=== PATIENT | male | born 1935 | race Caucasian/White ===

== ENCOUNTER → 2016-10-06 | Outpatient (CLI) | payer OTHER ==
[2016-10-06 13:25] LABS: ALT/SGPT 19 U/L (12-78); AST/SGOT 15 U/L (15-37); BLOOD UREA NITROGEN 16 mg/dl (7-18); BUN/CREATININE RATIO 19.8 (10-20); CALCIUM 8.9 mg/dl (8.5-10.1); CARBON DIOXIDE 30 mmol/L (21-32); CHLORIDE 106 mmol/L (98-107); CHOLESTEROL 177 mg/dl (0-200); GLUCOSE 96 mg/dl (70-99); POTASSIUM 3.7 mmol/L (3.5-5.1); SODIUM 143 mmol/L (136-145); TRIGLYCERIDES 178 mg/dl (0-150); VERY LOW DENSITY LIPOPROT CALC 36 mg/dl
[2016-10-06 13:26] LABS: CHOLESTEROL/HDL RATIO 5.5; HDL CHOLESTEROL 32 mg/dl; LDL CHOLESTEROL CALCULATED 109 mg/dl
== END | disposition home or self-care (01) ==
LOC: C.LABMFLN 08:58
PROVIDERS: ATTEND Family Medicine
DX: I10 Essential (primary) hypertension (principal); E78.5 Hyperlipidemia, unspecified

== ENCOUNTER → 2016-10-31 | Outpatient (CLI) | payer OTHER | END | disposition home or self-care (01) | LOC: C.PATHSPEC 17:56 | PROVIDERS: ATTEND Family Medicine | DX: L98.9 Disorder of the skin and subcutaneous tissue, unspecified (principal) ==

== ENCOUNTER → 2017-04-03 | Outpatient (CLI) | payer OTHER ==
[2017-04-03 13:57] LABS: ALT/SGPT 21 U/L (12-78); AST/SGOT 16 U/L (15-37); BLOOD UREA NITROGEN 18 mg/dl (7-18); BUN/CREATININE RATIO 20.2 (10-20); CALCIUM 9.1 mg/dl (8.5-10.1); CARBON DIOXIDE 29 mmol/L (21-32); CHLORIDE 106 mmol/L (98-107); CHOLESTEROL 182 mg/dl (0-200); GLUCOSE 98 mg/dl (70-99); SODIUM 140 mmol/L (136-145); TRIGLYCERIDES 178 mg/dl (0-150); VERY LOW DENSITY LIPOPROT CALC 36 mg/dl
[2017-04-03 14:01] LABS: CHOLESTEROL/HDL RATIO 6.1; HDL CHOLESTEROL 30 mg/dl; LDL CHOLESTEROL CALCULATED 116 mg/dl
== END | disposition home or self-care (01) ==
LOC: C.LABMFLN 08:40
PROVIDERS: ATTEND Family Medicine
DX: I10 Essential (primary) hypertension (principal); E78.5 Hyperlipidemia, unspecified; R05 Cough

== ENCOUNTER → 2017-09-25 | Outpatient (CLI) | payer OTHER ==
[2017-09-25 13:32] LABS: ALBUMIN 3.8 gm/dl (3.4-5.0); ALT/SGPT 25 U/L (12-78); BLOOD UREA NITROGEN 18 mg/dl (7-18); CALCIUM 9.1 mg/dl (8.5-10.1); CARBON DIOXIDE 30 mmol/L (21-32); CHOLESTEROL 187 mg/dl (0-200); CREATININE 0.92 mg/dl (0.60-1.40); GLUCOSE 106 mg/dl (70-99); POTASSIUM 4.1 mmol/L (3.5-5.1); SODIUM 140 mmol/L (136-145)
[2017-09-25 13:36] LABS: ALKALINE PHOSPHATASE 63 U/L (45-117); AST/SGOT 16 U/L (15-37); LDL CHOLESTEROL CALCULATED 118 mg/dl; TOTAL PROTEIN 6.4 gm/dl (6.4-8.2)
== END | disposition home or self-care (01) ==
LOC: C.LABMFLN 09:10
PROVIDERS: ATTEND Family Medicine
DX: I10 Essential (primary) hypertension (principal); E78.5 Hyperlipidemia, unspecified

== ENCOUNTER 2022-02-15 07:50 | Inpatient (IN) ==
--- NOTE | 2022-01-30 09:51 | PAT Medication Instructions ---
Medication Instructions Date of Service January 30, 2022 Home Medications Medication Instructions Recorded amlodipine 10 mg-benazepril 20 mg 1 cap PO QAM #90 caps 12/22/21 capsule hydrochlorothiazide 25 mg tablet 25 mg PO QAM #90 tabs 12/22/21 omeprazole 40 mg capsule,delayed 40 mg PO QAM #90 caps 12/22/21 release triamcinolone acetonide 0.1 % topical cream 1 applic topical UD PRN amlodipine 10 mg-benazepril 20 mg capsule 1 cap PO QAM hydrochlorothiazide 25 mg tablet 25 mg PO QAM omeprazole 40 mg capsule,delayed release 40 mg PO QAM aspirin 81 mg chewable tablet 81 mg PO QAM diclofenac sodium 75 mg tablet,delayed release 75 mg PO QAM metoprolol succinate 25 mg tablet,extended release 24 hr 25 mg PO QAM ASK your surgeon for instructions diclofenac sodium 75 mg tablet,delayed release 75 mg PO QAM STOP taking 24 hours before surgery triamcinolone acetonide 0.1 % topical cream 1 applic topical UD PRN DO NOT take the morning of surgery hydrochlorothiazide 25 mg tablet 25 mg PO QAM amlodipine 10 mg-benazepril 20 mg capsule 1 cap PO QAM Take morning of surgery With a small sip of water, OTHERWISE NOTHING TO EAT OR DRINK AFTER MIDNIGHT: omeprazole 40 mg capsule,delayed release 40 mg PO QAM aspirin 81 mg chewable tablet 81 mg PO QAM (unless directed otherwise by surgeon) metoprolol succinate 25 mg tablet,extended release 24 hr 25 mg PO QAM Other Notes If you have any questions please call us at [phone] or [phone] or [phone] or [phone]
--- NOTE | 2022-02-02 15:15 | Anesthesiology Consultation ---
Date of Service February 02, 2022 Assessment & Plan (1) Encounter for pre-operative examination: - Patient acceptable risk pending surgeon-ordered PCP preop evaluation (scheduled 02/09; [facility]). - COVID screening: Per assessment on 02/02: No known COVID-19 positive contacts or current COVID-19 related symptoms. Travel screen negative. Patient vaccinated. Surgeon arranging preop COVID testing. Awaiting results. - Patient requests deeper sedation if possible/"does not want to hear" anything during surgery. Chart Review Chart Review: Patient seen in Pre Admission Testing Teaching & Discussion Pre-Anesthesia Teaching/Discussion Notes: Instructed NPO after midnight before surgery,except medications with 15 cc of water. Medication instructions provided according to the PAT guidelines. History Surgery Operation Date: 02/15/22 14:55 Proposed Procedures p Right Total Knee Arthroplasty - Enrike Gonzales MD Height/Weight Height: 5 ft 10 in Weight: 86.4 kg Allergies Allergy/AdvReac Type Severity Reaction Status Date / Time guaifenesin Allergy Unknown Unknown Verified 02/01/22 13:49 hydrocodone Allergy Unknown Unknown Verified 02/01/22 13:49 Medications Home Medications Medication Instructions Recorded Confirmed Last Taken triamcinolone acetonide 0.1 % 1 applic topical UD PRN Skin 08/10/20 01/27/22 08/24/20 topical cream Irritation amlodipine 10 mg-benazepril 20 mg 1 cap PO QAM #90 caps 12/22/21 01/27/22 Unknown capsule hydrochlorothiazide 25 mg tablet 25 mg PO QAM #90 tabs 12/22/21 01/27/22 Unknown omeprazole 40 mg capsule,delayed 40 mg PO QAM #90 caps 12/22/21 01/27/22 Unknown release aspirin 81 mg chewable tablet 81 mg PO QAM 01/27/22 01/27/22 Unknown diclofenac sodium 75 mg 75 mg PO QAM 01/27/22 01/27/22 Unknown tablet,delayed release metoprolol succinate 25 mg 25 mg PO QAM 01/27/22 01/27/22 Unknown tablet,extended release 24 hr Past Medical History Medical History (Updated 02/02/22 @ 16:01 by Natalia Gerard) Benign essential hypertension Generalized osteoarthritis of multiple sites GERD without esophagitis HTN (hypertension) Hyperlipidemia Per records, pt denies Exercise / Class Metabolic Activity II 4-5 Yardwork/Stairs/Walk up hill (one FS (no CP, + SOB)) Past Family History Family History Mother Family history of cancer Other No family history of adverse response to anesthesia Past Surgical History Surgical History H/O shoulder surgery Right RCR History of cataract surgery R/L History of colonoscopy Past Anesthesia History No Hx of Anesthesia Complications and No Family Hx of Anesthesia Complications History of PONV No Hx of PONV and No Hx of Motion Sickness Social History Smoking Status: Never smoker Do You Dip or Chew Tobacco: No Hx Alcohol Use: Yes Alcohol type: beer alcohol intake frequency: a few times a week Hx Substance Use: No substance use type: does not use Review of Systems Patient denies chest pain, shortness of breath, fever, chills, cough, wheezing, palpitations. Physical Exam Vital Signs VITALS BP 130/65 P 84 TEMP 98.2 SP02 96%RA RESP 16 PHYSICAL Full cervical extension range of motion. Full TMJ range of motion. TMD 3 finger breaths Mallampati Score 2 Dentition: full dentures upper/lower Lungs: clear throughout to auscultation Cardiac: regular rate and rhythm, no murmurs noted Spine: normal Carotid arteries: negative bruit Extremities: no edema Lab Results Anesthesia Preop Results Results Anesthesia Widget: WBC 6.71 K/ul (4.8-10.8) 02/02/22 Hgb 14.1 g/dl (14.0-18.0) 02/02/22 Hct 41.1 % (40.1-51.0) 02/02/22 Plt 236 K/uL (130-400) 02/02/22 Na 137 mmol/L (136-145) 02/02/22 K 4.1 mmol/L (3.5-5.1) 02/02/22 Cl 103 mmol/L (98-107) 02/02/22 CO2 29 mmol/L (21-32) 02/02/22 BUN 20 mg/dl (6-23) 02/02/22 Creat 0.91 mg/dl (0.6-1.4) 02/02/22 Glucose Level 122 mg/dl (70-99(Fasting)) H 02/02/22 PT 10.9 Seconds (9.0-12.0) 02/02/22 PTT 29.0 Seconds (21.0-31.0) 02/02/22 INR 1.0 (0.9-1.1) 02/02/22 HA1c 5.4 % (4.5-5.6) 02/02/22 Urine Color Yellow 02/02/22 Urine Appearance Clear (Clear) 02/02/22 Urine pH 6.5 (4.5-7.5) 02/02/22 Urine Specific [place] 1.016 (1.000-1.030) 02/02/22 Urine Protein Negative (Negative) 02/02/22 Urine Glucose (UA) Negative (Negative) 02/02/22 Urine Ketones Negative (Negative) 02/02/22 Urine Blood Negative (Negative) 02/02/22 Urine Nitrite Negative (Negative) 02/02/22 Urine Bilirubin Negative (Negative) 02/02/22 Urine Urobilinogen Negative (Negative) 02/02/22 Urine Leukocyte Esterase Negative (Negative) 02/02/22 Blood Type O Positive 02/02/22 Antibody Screen NEGATIVE 02/02/22 Testing Electrocardiogram Date: 02/02/22 NSR at 83bpm. RBBB. Chest X-Ray Date: 02/02/22 FINDINGS: Small linear densities at the left lung base favor subsegmental atelectasis are scarring. Otherwise, the lungs are clear. The heart is normal in size. No pleural effusions. No pneumothorax. Mild to moderate degenerative changes within the thoracic spine. IMPRESSION: No acute process.
--- NOTE | 2022-02-14 21:34 | History & Physical Report ---
Date of Service February 14, 2022 Assessment & Plan (1) Primary osteoarthritis of right knee: Plan: Treatment options discussed with patient. He has failed conservative measures and would like to proceed with surgery. Risks, benefits and alternatives to surgery including but not limited to infection, DVT, pain, stiffness, need for revision surgery, damage to blood vessels, damage to nerves, PE, , were discussed with the patient and they wish to proceed. Plan on right total knee arthroplasty. Surgery scheduled for [facility] with Dr. Gonzales on 02/14/22. Will plan on aspirin 81mg BID x 1 mo post op for DVT prophylaxis. Will plan on inpatient rehab. All questions answered. F/u post op. History of Present Illness Chief Complaint: Right knee pain Primary Care Provider: Colton Ambriz MD 86yo male with PMHx significant for HTN presents with ongoing right knee pain. He has failed conservative management. Pain is interfering with his daily activity. He would like to proceed with knee replacement. Patient denies headaches, sweats, fevers, chills, double vision, blurred vision, cough, sore throat, dysphagia, chest pain, sob, wheezing, n/v/d/c, numbness, tingling, fatigue, urinary symptoms, mood disorders. ROS positive for right knee pain and stiffness. Allergies Allergy/AdvReac Type Severity Reaction Status Date / Time guaifenesin Allergy Unknown Unknown Verified 02/09/22 09:01 hydrocodone Allergy Unknown Unknown Verified 02/09/22 09:01 Home Medications Medication Instructions Recorded Confirmed Type triamcinolone acetonide 0.1 % 1 applic topical UD PRN Skin 08/10/20 02/09/22 History topical cream Irritation amlodipine 10 mg-benazepril 20 mg 1 cap PO QAM #90 caps 12/22/21 02/09/22 Rx capsule hydrochlorothiazide 25 mg tablet 25 mg PO QAM #90 tabs 12/22/21 02/09/22 Rx omeprazole 40 mg capsule,delayed 40 mg PO QAM #90 caps 12/22/21 02/09/22 Rx release aspirin 81 mg chewable tablet 81 mg PO QAM 01/27/22 02/09/22 History diclofenac sodium 75 mg 75 mg PO QAM 01/27/22 02/09/22 History tablet,delayed release metoprolol succinate 25 mg 25 mg PO QAM 01/27/22 02/09/22 History tablet,extended release 24 hr Past Med/Surg History Medical History Benign essential hypertension Generalized osteoarthritis of multiple sites GERD without esophagitis HTN (hypertension) Hyperlipidemia Surgical History H/O shoulder surgery History of cataract surgery History of colonoscopy Family History Mother Family history of cancer Other No family history of adverse response to anesthesia Social History Smoking Status: Never smoker Second Hand Exposure: No; Hx Alcohol Use: Yes Alcohol type: beer Alcohol Intake Frequency: 2-3 x/Week Hx Substance Use: No Preferred Language: Croatian Communication Ability: Effective Hearing Ability: Normal Block Out Machine Operator Required: No Beliefs That Will Affect Care: None marital status: / Current Living Situation: Alone How many Children do You have: 2 Feels Safe at Home: Yes Childhood Exposure to Second-Hand Smoke: Yes Seatbelt Use: always Sunscreen Use: Yes Assistive Devices: Denture - Upper, Denture - Lower and Glasses Review of Systems All systems reviewed & are unremarkable except as noted in HPI & below Physical Exam Constitutional: well developed and well nourished; no acute distress Eyes: PERRL, conjunctivae normal, anicteric sclerae ENMT: external ear and nose normal, oropharynx normal Neck: trachea midline, no thyromegaly Respiratory: normal respiratory effort, lungs clear to auscultation Cardiovascular: RRR, no murmur, no edema Musculoskeletal: Right knee: Varus alignment. Tenderness medial joint line with mild effusion. ROM 15-110 degres. Stable to valgus and varus stress. Skin: no rashes, warm and dry Neurologic: patellar DTR's 2+ bilat, sensation intact Psychiatric: A+Ox3, euthymic affect Results & Data ([facility]) Diagnostic Findings Right knee radiographs demonstrate endstage osteoarthritis right knee, varus alignment with bone on bone medial compartment with subluxation.
[~2022-02-15 07:50] MED LIST: ACETAMINOPHEN 500 MG TAB PO SCH; BUPIVACAINE 0.5 % 5 MG/1 ML PF 10ML VIAL ONE; CeleBREX 200 MG CAP PO SCH; FAMOTIDINE 20 MG TAB PO SCH; GABAPENTIN 300 MG CAP PO SCH; LR 500ML BOLUS, THEN 15ML/HR IV SCH; METOCLOPRAMIDE HCL 10 MG TABLET PO SCH; ROPIVACAINE 0.5% 5 MG/ML 30 ML VIAL ONE; ROPIVACAINE 0.5% HCL/PF 150 MG, BUPIVACAINE 0.75% MPF 20 ML, EPINEPHrine 30MG/30ML (OR ... INSTIL SCH; TRANEXAMIC ACID 1,000 MG **IV Intra-op IV SCH; TRANEXAMIC ACID 1,000 MG **IV Pre-op IV SCH; ceFAZolin 2000MG 2,000 MG/15 ML SYR IV SCH; dexAMETHasone 4 MG TAB PO SCH
[2022-02-15] MEDS ORDERED: MIDAZOLAM HCL 1 MG/ML 2ML VIAL ONE (08:26)
[2022-02-15] MEDS ORDERED: PROPOFOL IV EMULSION 10 MG/ML 20 ML VIAL IV ONE (08:26)
[2022-02-15] MEDS ORDERED: fentaNYL citrate 100 MCG/2 ML VIAL ONE (08:26)
--- NOTE | 2022-02-15 09:40 | History & Physical Bridge Note ---
Date of Service February 15, 2022 History & Physical Bridge Note I have examined the patient, reviewed the History & Physical and in the interval since the performance of the History & Physical I have noted the following changes of clinical significance: no changes noted
[2022-02-15] MEDS ORDERED: ORTHO JOINT ANESTHETIC ONE (09:44)
[2022-02-15] MEDS ORDERED: HYDROmorphone INJ 2 MG/ML SYR/VIAL IV PRN (10:18)
[2022-02-15] MEDS ORDERED: fentaNYL citrate 100 MCG/2 ML VIAL IV PRN (10:18)
[2022-02-15] MEDS ORDERED: ePHEDrine sulfate 50 MG/ML AMP IV PRN (10:18)
[2022-02-15] MEDS ORDERED: ATROPINE SULFATE 0.1 MG/ML 10ML SYR IV PRN (10:18)
[2022-02-15] MEDS ORDERED: PHENYLEPHRINE HCL 10 MG/ML VIAL ONE (11:01)
[2022-02-15] MEDS ORDERED: SODIUM CHLORIDE 0.9% INJ 10 ML VIAL ONE (11:01)
--- NOTE | 2022-02-15 12:25 | Post Operative Brief Note ---
Immediate Post Op Note v1 Date of Surgery February 15, 2022 Pre & Post Diagnosis Operation Date: 02/15/22 09:45 Pre-Op Diagnosis: Primary Osteoarthritis of Right Knee Post-Op Diagnosis: Primary Osteoarthritis of Right Knee I identified the patient and participated in the time-out.: Yes Procedure Operation Date: 02/15/22 09:45 Actual Procedures p Right Total Knee Arthroplasty(Right), superficial wound VAC application- Enrike Gonzales MD Surgeon Enrike Gonzales MD Or Manager Hmuberto WALKER Estimated Blood Loss 5 Findings Consistent with Post-Op Diagnosis Specimens Bone cuts Drains Hemovac Drain Anesthesia Type MAC Spinal Regional Complications none Disposition Disposition: Recovery Room Overlapping Procedure I was immediately available: during the entire case.
--- NOTE | 2022-02-15 12:33 | Operative Report ---
Post Operative Report Pre & Post Diagnosis Operation Date: 02/15/22 09:45 Pre-Op Diagnosis: Primary Osteoarthritis of Right Knee Post-Op Diagnosis: Primary Osteoarthritis of Right Knee I identified the patient and participated in the time-out.: Yes Procedure Operation Date: 02/15/22 09:45 Actual Procedures p Right Total Knee Arthroplasty(Right), application superficial wound VAC- Enrike Gonzales MD Surgeon Enrike Gonzales MD Urban Designer Humberto WALKER Estimated Blood Loss 5 Findings Consistent with Post-Op Diagnosis Specimens Bone cuts Drains 2 Hemovac Anesthesia Type MAC Spinal Regional Complications none Disposition Disposition: Recovery Room Indications 86-year-old male very healthy for stated age very active independent with end- stage tricompartmental osteoarthritis of his right knee. Radiographs demonstrate tricompartmental osteoarthritis [id number] medial compartment with a varus knee. Description of Procedure Patient taken to the operating room the size under spinal MAC regional block anesthesia. Patient was placed supine on the operating table. A pneumatic tourniquet was placed about the right upper thigh. The right lower extremity was prepped and draped in sterile fashion. Knee exam demonstrated 10 degree flexion contracture with flexion of 120 degrees mild medial pseudolaxity with valgus stress consistent with bone loss medially. The leg was elevated exsanguinated with an Esmarch bandage and pneumatic tourniquet was raised to 300 millimeters of mercury. Skin incised sharply in longitudinal fashion. Subcutaneous flaps elevated. Incision was made through the medial retinaculum extending up in the mid third of the quadriceps tendon and down to the medial tibial tubercle. Intra-articular findings demonstrated tricompartmental osteoarthritis grade 4 [id number] anteromedial compartment with grade 4 articular changes on the lateral femoral condyle chronic degeneration lateral meniscus chronic medial meniscus tear posterior lateral loose body in the joint some synovial embedded loose bodies in the scarred superior synovial tissue and circumferential patellar osteophytes. 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 The [employer] total knee arthroplasty system was used. To expose the knee the infrapatellar fat pad was resected. The meniscal remnants and cruciate ligaments were resected. The anterior fat pad over the femur in the area of the anterior flange of the femoral component was resected. Partial synovectomy was performed in the suprapatellar pouch area removing the scarred synovium and the loose bodies that were embedded within it. Posterior lateral joint loose body was removed later in the case. Lateral synovial bands released. The femur was exposed. An intramedullary drill hole was made into the canal. A guide rosina was placed. Distal femoral cutting guide was adjusted to resect a 5 degree valgus cut with 10 millimeters distal femur resected. Bone quality was noted to be excellent with very hard solid bone with no evidence of any osteoporosis. The knee was extended and a subperiosteal peel lateral release was performed around the patella. Patella width was measured and width was reproduced using a freehand cut technique and a 36 x 10 symmetrical patella component. The 3 drill holes were made and the excess lateral facet was beveled off to prevent any impingement. Attention was taken back to the femur which was exposed with retractors and the femoral sizing guide was pinned in position. The drill holes were placed in 3 of external rotation to match epicondylar axis. Femur sized for a 7 component. The 4-in-1 cutting block was placed and then the anterior posterior and chamfer cuts are made. The tibia was then s ubluxed. The external tibial cutting guide was just to make a perpendicular cut to the long axis of the tibia below the most deficient bone loss side. A lamina rn pain management was used and the flexion extension gaps were balanced. All posterior osteophytes removed. All meniscal remnants were resected. The tibia exposed and the trial tibial component size 6 was externally rotated in line with the tibial tubercle and pinned in position. The punch for stem was used. The notch cutting device was centered appropriately and the femoral notch cut was made. The femoral trial was inserted. Trial tibial inserts were placed and size 11 mm posterior stabilized tibial trial gave balanced ligaments through flexion and extension. Patella tracking was assessed. The patella tracked centrally. The trial components were then removed and the orthomix anesthetic cocktail was injected per protocol. The knee was then copiously irrigated with pulsatile lavage saline solution. Final components were then cemented with Refobacin cement. Final components were Victor Manuel triathlon right size 7 posterior stabilized femoral component, 6 primary tibial baseplate, 6 x 11 mm X.3 polyethylene tibial bearing insert posterior stabilized, X.3 symmetrical patella size 36 x 10. After the cement cured the Betadine soak was used for 3 minutes. Further pulsatile lavage irrigation was then performed and 2 Hemovac drains were brought out laterally. The quadriceps tendon and medial retinaculum were closed with figure of 8 #1 Vicryl sutures. The knee was taken through full range of motion and the repair was secure. Knee range of motion was 0 through 135 degrees. The subcutaneous tissues were closed with 2-0 Vicryl sutures. Skin was closed with fawn. Asher and Acticoat superficial wound VAC was applied. The patient tolerated the procedure well. Humberto WALKER was my physician custody assistant who participated as kindergarten instructional assistant and was involved in all aspects of the procedure including patient positioning prepping and draping,leg positioning ,soft tissue retraction and instrument management and participated in the closing and applied the superficial wound VAC and and will participate in postoperative care of the patient. The patient tolerated the procedure well. I attest to the content of the Intraoperative Record and any orders documented therein. Any exceptions are noted below.
--- NOTE | 2022-02-15 13:22 | Anesthesiology Progress Note ---
Date of Service February 15, 2022 Anesthesia Post Procedure Vital Signs Vital Signs: Temp Pulse Pulse Resp BP Pulse Ox O2 Del Method 02/15/22 13:05 36.4 C L 62 16 142/79 H 94 Nasal Cannula 02/15/22 12:55 65 16 157/76 H 92 Room Air 02/15/22 12:45 64 17 123/63 91 Room Air 02/15/22 12:35 62 12 118/64 95 Room Air 02/15/22 12:27 36.0 C L 65 18 120/56 L 95 Room Air 02/15/22 08:25 36.5 C 81 20 179/88 H 99 Room Air O2 Flow Rate 02/15/22 13:05 2 02/15/22 12:55 02/15/22 12:45 02/15/22 12:35 02/15/22 12:27 02/15/22 08:25 Transfer of Care Handoff Completed per policy Notes Mental Status: alert / awake / arousable and participated in evaluation Nausea / Vomiting: adequately controlled Pain: adequately controlled Airway Patency, RR, SpO2: stable & adequate BP & HR: stable & adequate Hydration State: stable & adequate Neuraxial Anesthesia: was administered and sensory block is resolving Anesthetic Complications: no major complications apparent and Pt Satisfied with anesthetic care
--- NOTE | 2022-02-15 13:30 | XRay Report ---
RIGHT KNEE 2 VIEWS History: Right total knee arthroplasty. Degenerative arthritis. Postop. FINDINGS: The patient is status post a right total knee arthroplasty. The hardware is intact. No frac ture or dislocation. Skin fawn and surgical drains are in place. IMPRESSION: Right total knee arthroplasty. No evidence for hardware complication. ACT 112: Negative or not required by law. Electronically signed by: Arun Morgan M.D. 02/15/2022 1:29 PM
[2022-02-15] MEDS ORDERED: HYDROmorphone INJ 0.5 MG/0.5 ML SYR IV PRN (13:38)
[2022-02-15] MEDS ORDERED: oxyCODONE HCL IR 5 MG TAB (IMMEDIATE RELEASE) PO PRN (13:38)
[2022-02-15] MEDS ORDERED: bisacodyL 10 MG SUPP PR PRN (13:38)
[2022-02-15] MEDS ORDERED: METOCLOPRAMIDE HCL INJ 5 MG/ML 2 ML VIAL IV PRN (13:38)
[2022-02-15] MEDS ORDERED: ONDANSETRON INJ 2 MG/ML 2 ML VIAL IV PRN (13:38)
[2022-02-15] MEDS ORDERED: NALOXONE HCL 0.4 MG/1 ML VIAL/CARP IV PRN (13:38)
[2022-02-15] MEDS ORDERED: MAGNESIUM HYDROXIDE SUSP 30 ML UDC PO PRN (13:38)
[2022-02-15] MEDS ORDERED: TAMSULOSIN HCL 0.4 MG CAP PO PRN (14:00)
[2022-02-15] MEDS: SODIUM CHLORIDE 0.9% 1000ML 1,000 ML IV SCH (14:09)
--- NOTE | 2022-02-15 14:26 | Hospitalist Consultation ---
Date of Consultation February 15, 2022 Assessment & Plan (1) Primary osteoarthritis of right knee: - s/p right TKA, POD #0, without complications, EBL 5 cc, [address]. - ABX/pain/activity/IVF/bowel regimen per primary team. - Rescue Narcan ordered if needed. - ASA 8a mg BID for VTE ppx per primary team. - CBC and BMP in AM. - Baseline Hgb in January--> 14.1 - Baseline Cr on BMP in January--> 0.91 (2) HTN (hypertension): - May continue metoprolol 25 mg daily, amlodipine 10 mg daily. - Hold HCTZ until POD #1 pending no decrease in renal function on tomorrow's BMP. Restart amlodipine-benazepril combo pill on POD #2 due to concern that ROMÁN/ARBs may cause post-op hypotension when spinal anesthesia used. HOwever, if patient is very hypertensive on POD #1, would be appropriate to restart it then instead of waiting. (3) GERD without esophagitis: - Continue PPI, will switch omeprazole to hospital formulary equivalent, pantoprazole 40 mg daily. - Patient states he only takes prn, has not required for "a long time" (4) Dyslipidemia: - History of, no current medications. - Last lipid panel in May: triglycerides 115, cholesterol 167, LDL 109, HDL 35 (5) Changing skin lesion: - Several actinic keratoses on right ear, face, currently not undergoing treatment. - Has triamcinolone cream prn for skin irritation. Supervising Physician Co-Signing Physician Notes Patient seen and examined, chart reviewed, case discussed with Lorene Rogers PA-C and I agree with the assessment and plan as above except as otherwise noted. At time of assessment right leg in postoperative wrap, sensation of soft touch intact in feet bilaterally, cap refill brisk in toes bilaterally, able to wiggle toes bilaterally. Breathing is unlabored.Labs and images reviewed Patient is an 86-year-old male who presented for right TKA due to OA. We have been consulted for medical management. Patient has history of hypertension controlled on metoprolol, hydrochlorothiazide, and amlodipine. Hydrochlorothiazide held for 1 day and may resume tomorrow, and BenzePrO following this. Continue metoprolol/amlodipine at this time. Recommend that patient transition to H2 natalie as needed as outpatient rather than PPI therapy as needed at home as he has not had flares recently. No other acute changes, BMP check in the morning. DVT prophylaxis, pain control, ambulation recommendations per primary team. History of Present Illness Reason for Consultation: post op medication management Requesting Physician: Enrike Gonzales MD Attending Physician: Enrike Gonzales MD History of Present Illness Simon Lombardi is an 86 y/o male with a PMH significant for hypertension, hyperlipidemia GERD, osteoarthritis was admitted to today, 02/15, for right TKA with Dr. Gonzales after failing conservative management. Hospitalist group was consulted for post-operative medication management. Today, he is POD#0 and feels well. Denies fever/chills, weakness, myalgias, fatigue, palpitations, shortness breath, abdominal pain, nausea, vomiting or diarrhea. He ate lunch and feels good at the time of my visit. Pain free, reg aining sensation in RLE, able to wiggle toes. No complaints. Allergies Allergy/AdvReac Type Severity Reaction Status Date / Time guaifenesin Allergy Unknown Unknown Verified 02/15/22 08:21 hydrocodone Allergy Unknown Unknown Verified 02/15/22 08:21 Home Medications Medication Instructions Recorded Confirmed Type triamcinolone acetonide 0.1 % 1 applic topical UD PRN Skin 08/10/20 02/15/22 History topical cream Irritation amlodipine 10 mg-benazepril 20 mg 1 cap PO QAM #90 caps 12/22/21 02/15/22 Rx capsule hydrochlorothiazide 25 mg tablet 25 mg PO QAM #90 tabs 12/22/21 02/15/22 Rx omeprazole 40 mg capsule,delayed 40 mg PO QAM #90 caps 12/22/21 02/15/22 Rx release aspirin 81 mg chewable tablet 81 mg PO QAM 01/27/22 02/15/22 History diclofenac sodium 75 mg 75 mg PO QAM 01/27/22 02/15/22 History tablet,delayed release metoprolol succinate 25 mg 25 mg PO QAM 01/27/22 02/15/22 History tablet,extended release 24 hr Patient History Medical History (Updated 02/15/22 @ 14:11 by Lorene Rogers PA-C) Benign essential hypertension Generalized osteoarthritis of multiple sites GERD without esophagitis HTN (hypertension) Hyperlipidemia Per records, pt denies Surgical History H/O shoulder surgery Right RCR History of cataract surgery R/L History of colonoscopy Family History Mother Family history of cancer Other No family history of adverse response to anesthesia Social History Smoking Status: Never smoker Second Hand Exposure: No; Do You Dip or Chew Tobacco: No; Tobacco Cessation Education Requested by Patient: No Hx Alcohol Use: Yes Alcohol type: beer Alcohol Intake Frequency: 2-3 x/Week Hx Substance Use: No Preferred Language: Romansh Communication Ability: Effective Hearing Ability: Normal Vp Human Resources Required: No Beliefs That Will Affect Care: None marital status: / Current Living Situation: Alone How many Children do You have: 2 Other Information That Helps Us Care for You: No Feels Safe at Home: Yes Safety Concerns: Feels Safe At This Time Childhood Exposure to Second-Hand Smoke: Yes Seatbelt Use: always Sunscreen Use: Yes Assistive Devices: Denture - Upper, Denture - Lower and Glasses Review of Systems Review of Systems: Constitutional: No fever/chills, weakness, fatigue, myalgias, anorexia, night sweats Eyes: No diplopia, no worsening or blurred vision ENT: normal hearing, no trouble swallowing Respiratory: No cough, sputum, dyspnea at rest or on exertion Cardiovascular: No chest pain, tightness or palpitations Abdomen: No pain, nausea, vomiting, diarrhea or constipation : Denies dysuria, hematuria, increased urgency/frequency, urinary retention Musculoskeletal: No joint pain, calf pain, swelling Neurologic: No weakness, numbness/tingling, or balance problems Psychiatric: No anxiety or depression Skin: No rash or itch Physical Exam Physical Exam: General: awake, alert, no apparent distress Head: Normocephalic, atraumatic ENT: PERRL, EOMI, no pharyngeal exudate, mucous membranes moist Chest: Clear to auscultation, on room air, no adventitious breath sounds Cardiac: Regular rate and rhythm, no murmur, no JVD, normal peripheral pulses, good capillary refill Abdominal: NABS x 4 quadrants, soft, nontender to palpation, no rebound, guarding or tenderness Extremities: right leg in wraps and bandaged post-operatively, has sensation in b/l extremities, pulses intact, warm to touch, able to move toes; Normal inspection of LLE, no peripheral edema or erythema, calfs nontender to palpation Psych: Normal mood and affect Neuro: AAO x 3, strength intact bilaterally and rated 5/5, no motor deficits, speech is clear, no peripheral sensory deficits Skin: no rash or erythema Results & Data Results & Data ([facility]) Vital Signs (Past 12 Hours) Vital Signs Temp Pulse Pulse Resp BP Pulse Ox O2 Del Method 02/15/22 13:55 36.4 C L 63 20 158/67 H 97 Nasal Cannula 02/15/22 13:05 36.4 C L 62 16 142/79 H 94 Nasal Cannula 02/15/22 12:55 65 16 157/76 H 92 Room Air 02/15/22 12:45 64 17 123/63 91 Room Air 02/15/22 12:35 62 12 118/64 95 Room Air 02/15/22 12:27 36.0 C L 65 18 120/56 L 95 Room Air 02/15/22 08:25 36.5 C 81 20 179/88 H 99 Room Air O2 Flow Rate 02/15/22 13:55 2 02/15/22 13:05 2 02/15/22 12:55 02/15/22 12:45 02/15/22 12:35 02/15/22 12:27 02/15/22 08:25 Diagnostic Findings Knee X-Ray 02/15/22 12:30 RIGHT KNEE 2 VIEWS History: Right total knee arthroplasty. Degenerative arthritis. Postop. FINDINGS: The patient is status post a right total knee arthroplasty. The hardware is intact. No fracture or dislocation. Skin fawn and surgical drains are in place. IMPRESSION: Right total knee arthroplasty. No evidence for hardware complication. ACT 112: Negative or not required by law. Electronically signed by: Arun Morgan M.D. 02/15/2022 1:29 PM PG Care Time/CCT Total # of Minutes Spent Total Time Spent with Patient: Total time spent is greater than 50% in coordination of care (as documented) at patient's floor/unit and/or counseling patient: Coding Level of Care Code 32348 Inpt Consult Level 1 Diagnoses Primary osteoarthritis of right knee M17.11 HTN (hypertension) I10 GERD without esophagitis K21.9 Dyslipidemia E78.5 Changing skin lesion L98.9
[2022-02-15] MEDS: ACETAMINOPHEN 500 MG TAB PO SCH ×2 (15:01→21:21)
[2022-02-15] MEDS ORDERED: METOPROLOL TARTRATE 1 MG/ML VIAL IV PRN (17:29)
[2022-02-15] MEDS ORDERED: amLODIPine BESYLATE 5 MG TAB PO ONE (17:36)
[2022-02-15] MEDS: ceFAZolin 2000MG 2,000 MG/15 ML SYR IV SCH (18:08)
[2022-02-15] MEDS: ASPIRIN 81 MG ECTAB PO SCH (20:11)
[2022-02-15] MEDS: CeleBREX 200 MG CAP PO SCH (20:11)
[2022-02-15] MEDS: SENNA 8.6 MG TAB PO SCH (20:12)
[2022-02-15] MEDS: DOCUSATE SODIUM 100 MG CAP PO SCH (20:12)
[2022-02-15] MEDS ORDERED: amLODIPine BESYLATE 5 MG TAB PO PRN (20:54)
[2022-02-16] MEDS: ceFAZolin 2000MG 2,000 MG/15 ML SYR IV SCH (02:12)
[2022-02-16] MEDS: SODIUM CHLORIDE 0.9% 1000ML 1,000 ML IV SCH (05:51)
[2022-02-16 05:52] LABS: Hematocrit (blood only) 36.2 % (40.1-51.0); Hemoglobin 12.7 g/dl (14.0-18.0); Mean Corpuscular Hemoglobin 30.7 pg (25.0-34.0); Mean Corpuscular Hgb Conc 35.1 g/dL (32.0-36.0); Mean Corpuscular Volume 87.4 fL (80.0-100.0); Mean Platelet Volume 9.6 fL (9.4-12.4); Platelet Count 252 K/uL (130-400); RDW Coefficient of Variation 13.2 % (11.5-14.5); RDW Standard Deviation 42.5 fL (36.4-46.3); Red Blood Count 4.14 M/uL (4.63-6.08); White Blood Count 10.39 K/ul (4.8-10.8)
[2022-02-16] MEDS: ACETAMINOPHEN 500 MG TAB PO SCH ×3 (05:53→21:53)
[2022-02-16 06:21] LABS: Calcium 8.4 mg/dl (8.5-10.1); Creatinine Clr Calc Pharmacy 57.9 ml/min; Est GFR (African American) 86.9 ml/min; Potassium 4.1 mmol/L (3.5-5.1)
--- NOTE | 2022-02-16 08:05 | Orthopedic Progress Note ---
Date of Service February 16, 2022 Assessment & Plan (1) Primary osteoarthritis of right knee: Plan: Postop day #1 right total knee arthroplasty -PT/OT -Pain management as written -DVT prophylaxis: SCDs, teds, aspirin 81 mg twice daily -AM labs: Hemoglobin at 12.7 from 14.1 preop. Kidney function stable -Discharge planning: Patient likely will want to go to inpatient rehab. non emergency services ambulance driver consult placed. Admission and Anticipated Discharge Date Admission Date: February 15, 2022 Subjective Patient is postop day #1 right total knee. He is doing well this morning. Minimal pain. No other complaints. Denies chest pain, shortness of breath nausea/vomiting/diarrhea, lightheadedness dizziness. Review of Systems Review of Systems: All systems reviewed & are unremarkable except as noted in Subjective Physical Exam Physical Exam: Right knee: Dressings are clean, dry, intact. Toes are mobile with good dorsiflexion. No calf tenderness. Able to do straight leg raise. Distally neurovascular status and sensation intact. Constitutional: WD/WN, vitals as above Results & Data ([facility]) Vital Signs (Past 12 Hours) Vital Signs Temp Pulse Resp BP Pulse Ox O2 Del Method 02/16/22 07:34 36.5 C 78 16 139/76 96 02/16/22 04:20 36.4 C L 83 17 143/75 H 95 Room Air 02/15/22 23:39 36.8 C 75 18 153/81 H 94 Room Air Laboratory Results Lab Results 02/15/22 02/16/22 02/16/22 Range/Units 08:10 05:38 05:38 WBC 10.39 (4.8-10.8) K/ul RBC 4.14 L (4.63-6.08) M/uL Hgb 12.7 L (14.0-18.0) g/dl Hct 36.2 L (40.1-51.0) % MCV 87.4 (80.0-100.0) fL MCH 30.7 (25.0-34.0) pg MCHC 35.1 (32.0-36.0) g/dL RDW Std Deviation 42.5 (36.4-46.3) fL RDW Coeff of Khanh 13.2 (11.5-14.5) % Plt Count 252 (130-400) K/uL MPV 9.6 (9.4-12.4) fL Sodium 138 (136-145) mmol/L Potassium 4.1 (3.5-5.1) mmol/L Chloride 107 (98-107) mmol/L Carbon Dioxide 25 (21-32) mmol/L Anion Gap 6 (3-11) BUN 20 (6-23) mg/dl Creatinine 0.91 (0.6-1.4) mg/dl Est Cr Clr Drug Dosing 57.9 ml/min Est GFR ( Amer) 86.9 ml/min Est GFR (Non-Af Amer) 75.0 ml/min BUN/Creatinine Ratio 22.0 H (10-20) Glucose 137 H (70-99(Fasting)) mg/dl Calcium 8.4 L (8.5-10.1) mg/dl SARS-CoV-2, RNA, NAAT NEGATIVE (NEGATIVE)
[2022-02-16] MEDS: METOPROLOL SUCC 25MG EXT REL TAB PO SCH (08:22)
[2022-02-16] MEDS: DOCUSATE SODIUM 100 MG CAP PO SCH ×2 (08:22→20:00)
[2022-02-16] MEDS: amLODIPine BESYLATE 5 MG TAB PO SCH (08:22)
[2022-02-16] MEDS: ASPIRIN 81 MG ECTAB PO SCH ×2 (08:22→19:59)
[2022-02-16] MEDS: MULTIVITAMIN TAB PO SCH (08:23)
[2022-02-16] MEDS: hydroCHLOROthiazide 25 MG TAB PO SCH (08:23)
[2022-02-16] MEDS: CeleBREX 200 MG CAP PO SCH ×2 (08:23→19:59)
[2022-02-16] MEDS: PANTOprazole 40 MG TAB PO SCH (08:23)
[2022-02-16] MEDS ORDERED: amLODIPine BESYLATE 5 MG TAB PO SCH (09:00)
[2022-02-16] MEDS ORDERED: ENALAPRIL MALEATE 10 MG TAB PO SCH (09:00)
--- NOTE | 2022-02-16 18:01 | Hospitalist Progress Note ---
Date of Service February 16, 2022 Assessment & Plan (1) Primary osteoarthritis of right knee: Plan: Attending: Dr. Wiggins - s/p right TKA, POD #2, without complications, EBL 5 cc - [address] with serosanguineous fluid draining. - ABX/pain/activity/IVF/bowel regimen per primary team. - ASA 8a mg BID for VTE ppx per primary team. - Labs are stable - Further management per orthopedics -Anticipate discharge to [facility] tomorrow (2) HTN (hypertension): Plan: - Continue all antihypertensives including metoprolol and hydrochlorothiazide -Continue to monitor vital signs per protocol (3) GERD without esophagitis: Plan: - Continue PPI, will switch omeprazole to hospital formulary equivalent, pantoprazole 40 mg daily. - Patient states he only takes prn, has not required for "a long time". I would encourage the patient to continue PPI for least 2 to 3 weeks after discharge secondary to stress of surgery - Due to patient's advanced age, encourage no food or drink within 4 hours of bedtime. Patient should be as upright as possible with all meals. Encourage small bites followed by sips of fluid after each bite is chewed thoroughly (4) Dyslipidemia: Plan: - History of, no current medications. - Last lipid panel in May: triglycerides 115, cholesterol 167, LDL 109, HDL 35 - Outpatient management (5) Changing skin lesion: Plan: - Several actinic keratoses on right ear, face, currently not undergoing treatment. - Has triamcinolone cream prn for skin irritation. -Outpatient management Plan Patient can be discharged to [facility] from an internal medicine perspective with above recommendations Thank you very much for including us in the care of this patient. The medicine service will sign off at this time. Please feel free to call with any questions or concerns. Admission and Anticipated Discharge Date Admission Date: February 15, 2022 Supervising Physician Co-Signing Physician Notes Attending Attestation - Chart reviewed, care plan d/w AARON Alvarenga. I agree w/ the bean components of his documentation. Trey Wiggins MD Subjective Attending: Dr. Wiggins Patient is postop day #1 right total knee. Minimal pain. Denies chest pain, shortness of breath nausea/vomiting/diarrhea, lightheadedness dizziness. Was able to ambulate around the carrion. No pain in left knee. Pain generally controlled in right knee. Patient has no acute complaints Review of Systems Review of Systems: A total of 10 systems was reviewed and is negative other than as listed in the HPI Physical Exam Physical Exam: GENERAL : No acute distress EYES: No icterus, gaze conjugate NOSE: No evidence of epistaxis MOUTH: No lesions or candidiasis NECK: Supple LUNGS: CTA B/L, no wheezes, rales or rhonchi HEART: Regular, rate controlled ABDOMEN: Soft, NT, ND, BS Present EXTREMITIES: No LE edema, pedal pulses intact and equal bilaterally. Right leg is wrapped. Suction to right knee drains with serosanguineous drainage. NEURO: A&OX3 Results & Data Results & Data ([facility]) Vital Signs (Past 12 Hours) Vital Signs Temp Pulse Resp BP Pulse Ox 02/16/22 16:24 36.4 C L 78 16 152/80 H 98 02/16/22 07:34 36.5 C 78 16 139/76 96 Critical Care Results & Data Vital Signs (Past 12 Hours) Vital Signs Temp Pulse Resp BP Pulse Ox 02/16/22 16:24 36.4 C L 78 16 152/80 H 98 02/16/22 07:34 36.5 C 78 16 139/76 96 Lab & Micro Results (Past 24 Hours) No Data to Display No Data to Display No Data to Display I & O Totals 24 Hours 02/15/22 02/16/22 02/17/22 06:59 06:59 06:59 Intake Total 3150 / 3150 Output Total 440 / 440 175 / 175 Balance 2710 / 2710 -175 / -175 Cumulative 01/23/22 15:52 thru 02/16/22 15:15 Intake Total 3150 Output Total 615 Balance 2535 RT Ventilator Mngmt (Last Documented) Ventilator Ordered Settings Respiratory Rate 16 02/16/22 16:24 Ventilator - PT Measurements Respiratory Rate 16 PG Care Time/CCT Total # of Minutes Spent Total Time Spent with Patient: Total time spent is greater than 50% in coordination of care (as documented) at patient's floor/unit and/or counseling patient: Coding Level of Care Code 12976 Subseq Hosp Care Lvl 2 Diagnoses Primary osteoarthritis of right knee M17.11 HTN (hypertension) I10 GERD without esophagitis K21.9 Dyslipidemia E78.5 Changing skin lesion L98.9
[2022-02-16] MEDS: SENNA 8.6 MG TAB PO SCH (20:00)
[2022-02-17] MEDS: ACETAMINOPHEN 500 MG TAB PO SCH ×2 (05:31→08:25)
[2022-02-17] MEDS: amLODIPine BESYLATE 5 MG TAB PO SCH (08:20)
[2022-02-17] MEDS: CeleBREX 200 MG CAP PO SCH (08:21)
[2022-02-17] MEDS: hydroCHLOROthiazide 25 MG TAB PO SCH (08:21)
[2022-02-17] MEDS: ASPIRIN 81 MG ECTAB PO SCH (08:21)
[2022-02-17] MEDS: DOCUSATE SODIUM 100 MG CAP PO SCH (08:21)
[2022-02-17] MEDS: PANTOprazole 40 MG TAB PO SCH (08:22)
[2022-02-17] MEDS: MULTIVITAMIN TAB PO SCH (08:22)
[2022-02-17] MEDS: METOPROLOL SUCC 25MG EXT REL TAB PO SCH (08:22)
[2022-02-17] MEDS ORDERED: ENALAPRIL MALEATE 10 MG TAB PO SCH (09:00)
--- NOTE | 2022-02-17 09:17 | Orthopedic Progress Note ---
Date of Service February 17, 2022 Assessment & Plan (1) Primary osteoarthritis of right knee: Plan: Postop day #2 right total knee arthroplasty -PT/OT -Pain management as written -DVT prophylaxis: SCDs, teds, aspirin 81 mg twice daily -Discharge planning: Planning for [facility] today. Admission and Anticipated Discharge Date Admission Date: February 15, 2022 Subjective Postop day 2 Patient sitting up in the chair at the bedside. States he feels well. Pain is controlled. States that his knee is a little bit stiff this morning. No other concerns at this time. He states that he is going to [facility] this morning. Physical Exam Physical Exam: Asher dressing is clean, dry, and intact. He has some mild swelling of the knee secondary to surgery. Calves are soft nontender. Neurovascular intact. Toes are mobile. Results & Data ([facility]) Vital Signs (Past 12 Hours) Vital Signs Temp Pulse Pulse Resp BP Pulse Ox O2 Del Method 02/17/22 07:27 36.6 C 71 16 162/73 H 96 Room Air 02/16/22 21:55 36.6 C 68 16 137/78 96 Room Air
--- NOTE | 2022-02-17 22:25 | Discharge Summary ---
Date of Service February 17, 2022 Admission HPI Per Admitting Provider 86yo male with PMHx significant for HTN presents with ongoing right knee pain. He has failed conservative management. Pain is interfering with his daily activity. He would like to proceed with knee replacement. Patient denies headaches, sweats, fevers, chills, double vision, blurred vision, cough, sore throat, dysphagia, chest pain, sob, wheezing, n/v/d/c, numbness, tingling, fatigue, urinary symptoms, mood disorders. ROS positive for right knee pain and stiffness. Admission Exam Per Admitting Provider Constitutional: well developed and well nourished; no acute distress Eyes: PERRL, conjunctivae normal, anicteric sclerae ENMT: external ear and nose normal, oropharynx normal Neck: trachea midline, no thyromegaly Respiratory: normal respiratory effort, lungs clear to auscultation Cardiovascular: RRR, no murmur, no edema Musculoskeletal: Right knee: Varus alignment. Tenderness medial joint line with mild effusion. ROM 15-110 degres. Stable to valgus and varus stress. Skin: no rashes, warm and dry Neurologic: patellar DTR's 2+ bilat, sensation intact Psychiatric: A+Ox3, euthymic affect Principal Diagnosis Right knee osteoarthritis Discharge Exam Right knee: Asher dressing is clean, dry, and intact. He has some mild swelling of the knee secondary to surgery. Calves are soft nontender. Neurovascular intact. Toes are mobile. Constitutional WD/WN, vitals as above Discharge Data Allergies Allergy/AdvReac Type Severity Reaction Status Date / Time guaifenesin Allergy Unknown Unknown Verified 02/15/22 08:21 hydrocodone Allergy Unknown Unknown Verified 02/15/22 08:21 Consultations 02/13/22 11:40 Consult Hospitalist Routine Procedures Performed Operation Date: 02/15/22 09:45 Actual Procedures p Right Total Knee Arthroplasty(Right) - Enrike Gonzales MD Ordered Studies 02/15/22 05:00 US - OR guided needle placemen Routine Hospital Course (1) Primary osteoarthritis of right knee: Postop day #2 right total knee arthroplasty -PT/OT -Pain management as written -DVT prophylaxis: SCDs, teds, aspirin 81 mg twice daily -Discharge planning: [facility] today. Postop day #1 right total knee arthroplasty -PT/OT -Pain management as written -DVT prophylaxis: SCDs, teds, aspirin 81 mg twice daily -AM labs: Hemoglobin at 12.7 from 14.1 preop. Kidney function stable -Discharge planning: Patient likely will want to go to inpatient rehab. administrative services coordinator consult placed. Lab Results 02/15/22 02/16/22 02/16/22 Range/Units 08:10 05:38 05:38 WBC 10.39 (4.8-10.8) K/ul RBC 4.14 L (4.63-6.08) M/uL Hgb 12.7 L (14.0-18.0) g/dl Hct 36.2 L (40.1-51.0) % MCV 87.4 (80.0-100.0) fL MCH 30.7 (25.0-34.0) pg MCHC 35.1 (32.0-36.0) g/dL RDW Std Deviation 42.5 (36.4-46.3) fL RDW Coeff of Khanh 13.2 (11.5-14.5) % Plt Count 252 (130-400) K/uL MPV 9.6 (9.4-12.4) fL Sodium 138 (136-145) mmol/L Potassium 4.1 (3.5-5.1) mmol/L Chloride 107 (98-107) mmol/L Carbon Dioxide 25 (21-32) mmol/L Anion Gap 6 (3-11) BUN 20 (6-23) mg/dl Creatinine 0.91 (0.6-1.4) mg/dl Est Cr Clr Drug Dosing 57.9 ml/min Est GFR ( Amer) 86.9 ml/min Est GFR (Non-Af Amer) 75.0 ml/min BUN/Creatinine Ratio 22.0 H (10-20) Glucose 137 H (70-99(Fasting)) mg/dl Calcium 8.4 L (8.5-10.1) mg/dl SARS-CoV-2, RNA, NAAT NEGATIVE (NEGATIVE) Total Time Total Time Spent Total Time Spent (In Minutes): 20 Discharge Plan Discharge Items Patient Disposition: Transfer Inpatient Rehab Fac Reason For Visit: Primary Osteoarthritis of Right Knee Discharge Diagnosis: Right knee osteoarthritis Activity: Per Instructions section Weightbearing: Right weightbearing Weightbearing Comment: as tolerated with walker Non-emergency contact: Surgeon Call non-emergency contact if: you have any medication questions, your pain is concerning for you, you have a fever, your temperature is above 101, your wound has increased redness and your wound has increased drainage Follow-up/Referrals: Colton Ambriz MD [Primary Care Provider] - Enrike Gonzales MD [Surgeon] - (Follow up with Dr Gonzales in 2 weeks from the day of your surgery for your first follow up visit) Diet: Regular Addtl Attending Provider Instructions: ACTIVITY RECOMMENDATIONS: SELF CARE INSTRUCTIONS AFTER TOTAL KNEE REPLACEMENT A. You may need to continue a physical therapy program after discharge from the hospital. There are several options available to you. Your doctor will assist you in selecting the best one for you. 1. An out-patient facility 2 to 3 times a week for therapy or home therapy. 2. Continue working on all exercises taught to you in the hospital. Your goals should be to increase bending of your knee to 90 degrees and beyond and to fully straighten your knee. B. You may progress at your own pace from walking with a walker or crutches to a cane; then to no assistive devices. C. Make walking a part of your daily routine. Be up as much as comfortable with rest periods throughout the day. Rest with leg elevation is very important. Use the ice wrap frequently for the first 3-4 weeks. D. There are no restrictions on activities. You may ride in a car, shop, participate in incident response coordinator and all social activities. E. Wear the long elastic stockings (TEDDY hose) 20 hours a day for 2 weeks after surgery. They can be removed several times a day for laundering and for a bath. F. You may shower, no tub baths until cleared by your doctor. SPECIAL CARE INSTRUCTIONS: VERY IMPORTANT TO READ AND REVIEW A. There are a few signs you need to watch for after you are home. Call [facility] if you notice any of the followin. Increased severe knee pain. Some pain is expected especially when you exercise. 2. Increased swelling in your leg or knee; pain or swelling of the calf muscle in either lower leg. 3. Any fluid drainage from the incision. 4. Shortness of breath or chest pain. B. Please call [facility] at if you have any concerns or questions about your operation or recovery. The doctor or his nurse will return your call promptly. C. You must take antibiotics before dental work, bladder, bowel or other surgery. Your doctor will provide you with a permanent care to carry describing this precaution. IMPORTANT: * REMEMBER TO TAKE ASPIRIN, 81 MG, TWICE DAILY FOR 4 WEEKS UNLESS OTHERWISE DIRECTED. THIS IS YOUR BLOOD THINNER. * HIGH RISK PATIENTS MAY BE PRESCRIBED A STRONGER BLOOD THINNER. THIS WILL BE PROVIDED AT DISCHARGE. * CALL IF INCREASED PAIN, REDNESS, DRAINAGE OR FEVER GREATER THAT 101. * WEAR TEDDY HOSE 20 HOURS PER DAY FOR 2 WEEKS. This is a large suction dressing covering your incision. This will help pull any excess drainage from the wound and allow your incision to heal properly. You may shower with this if you can keep the unit outside of the shower. If any bleeding or leakage is noted please call your doctor's office. This will remain on your incision for 7 days and then should be removed. This can be done yourself or by the home nursing staff if applicable. The entire unit is disposable once removed. Once removed, keep incision clean and dry. If redness or drainage is noted, please call your surgeon. IF INCISION IS LEAKING THROUGH DRESSING, CALL THE OFFICE . FOLLOW UP VISIT: If appointment is not already scheduled: Please call [facility] to make a follow-up appointment for 2 weeks after your surgery at . Stand-Alone Forms: My [facility] Skilled Items Patient informed of condition?: Yes DNR: No Discharge Level of Care: Acute rehab Communicable Disease: No Discharge Prognosis: Stable Lines: None Urinary Catheter: No Medications and DC Order Prescriptions: New celecoxib [Celebrex] 200 mg Capsule 200 mg PO BID 14 Days Qty: 28 0RF aspirin 81 mg Tablet,Delayed Release (Dr/Ec) 81 mg PO BID 30 Days Qty: 60 0RF acetaminophen [Tylenol Extra Strength] 500 mg Tablet 1,000 mg PO Q8 14 Days Qty: 84 0RF docusate sodium 100 mg Capsule 100 mg PO BID 14 Days Qty: 28 0RF oxycodone 5 mg Tablet 5 - 10 mg PO Q4H PRN (Reason: pain) Qty: 24 0RF Continued amlodipine-benazepril 10-20 mg capsule 1 cap PO QAM Qty: 90 3RF hydrochlorothiazide 25 mg tablet 25 mg PO QAM Qty: 90 3RF omeprazole 40 mg capsule,delayed release(DR/EC) 40 mg PO QAM Qty: 90 3RF triamcinolone acetonide 0.1 % cream 1 applic TOP UD PRN (Reason: Skin Irritation) metoprolol succinate 25 mg tablet extended release 24 hr 25 mg PO QAM Discontinued diclofenac sodium 75 mg Tablet,Delayed Release (Dr/Ec) 75 mg PO QAM aspirin 81 mg tablet,chewable 81 mg PO QAM Discharge Orders: Discharge Order (Routine); Ordered 02/17/22 Ordered By: Regan Dickerson Admission Data Admit Date/Time: 02/15/22 12:30 Attending Provider: Enrike Gonzales Admit Provider: Enrike Gonzales Primary Care Provider: Colton Ambriz Other Providers: Trey Wiggins ; [facility] Other Interventions: Discharge Summary Assessment (RN) Last Done: 02/17/22 14:33
== END 2022-02-17 15:34 | DRG 470 ==
LOC: ASU 07:50 → 3E 12:30
DX: L57.0 Actinic keratosis; Z88.5 Allergy status to narcotic agent; I10 Essential (primary) hypertension; K21.9 Gastro-esophageal reflux disease without esophagitis; Z88.8 Allergy status to other drugs, medicaments and biological substances; Z20.822 Contact with and (suspected) exposure to COVID-19; Z79.82 Long term (current) use of aspirin; Z79.899 Other long term (current) drug therapy; Z79.1 Long term (current) use of non-steroidal anti-inflammatories (NSAID); M17.11 Unilateral primary osteoarthritis, right knee; Z01.812 Encounter for preprocedural laboratory examination